=== PATIENT | female | born 1985 | race Caucasian/White ===

== ENCOUNTER 2016-11-12 16:09 | Emergency (ER) | payer BC ==
[2016-11-12 17:14] VITALS: BP 117/75
--- NOTE | 2016-11-12 17:41 | UC ---
Minor Trauma HPI - HPI Summary HPI Summary: 31 yo F states her 1 yo daughter jumped on her right groin. Today pt notices a lump in her right groin where pt jumped on her. No bruising. Is painful, worse with weight bearing. Pt thought the lump was pea sized, but when showing it to me realizes that it is larger than that. Pt also wants us to evaluate her left shoulder which has given her problems for years after softball injury. She states the shoulder pops when she rotates the shoulder. Was told she needed surgery years ago, that she has "bone on bone". - History of Current Complaint Chief Complaint: UCGU Stated Complaint: Lump in right groin, left shoulder popping Time Seen by Provider: 11/12/16 17:24 Hx Obtained From: Patient Hx Last Menstrual Period: 10/17/16 ?: No Onset/Duration: Gradual Onset, Lasting Days, Still Present Onset Of Pain: Post Accident Severity Initially: Moderate Severity Currently: Moderate Pain Intensity: 5 Pain Scale Used: 0-10 Numeric Mechanism Of Injury: Direct Blow Aggravating Factor(s): Ambulation Alleviating Factor(s): Nothing Associated Signs And Symptoms: Positive: Swelling - "lump" in right groin. Negative: Ecchymosis - Allergies/Home Medications Allergies/Adverse Reactions: Allergies Allergy/AdvReac Type Severity Reaction Status Date / Time Bee Venom Allergy Swelling Verified 10/08/14 07:43 caterpillar Allergy Swelling Uncoded 10/08/14 07:44 PMH/Surg Hx/FS Hx/Imm Hx Previously Healthy: Yes - Surgical History Surgical History: Yes Surgery Procedure, Year, and Place: deviated septum - Family History Known Family History: Positive: Hypertension - Social History Occupation: Employed Full-time Lives: With Family Alcohol Use: Rare Substance Use Type: None Smoking Status (MU): Never Smoked Tobacco Review of Systems Constitutional: Negative Skin: Negative Eyes: Negative ENT: Negative Respiratory: Negative Cardiovascular: Negative Gastrointestinal: Negative Genitourinary: Negative Motor: Negative Neurovascular: Negative Musculoskeletal: Arthralgia, Other: - lump in right groin after injury, pain with standing and weight bearing Neurological: Negative Psychological: Negative All Other Systems Reviewed And Are Negative: Yes Physical Exam Triage Information Reviewed: Yes Appearance: Well-Appearing, No Pain Distress, Well-Nourished Vital Signs: Initial Vital Signs Temp 98.8 F 11/12/16 17:09 Pulse 87 11/12/16 17:09 Resp 14 11/12/16 17:09 BP 117/75 11/12/16 17:09 Pulse Ox 100 11/12/16 17:09 Vital Signs Reviewed: Yes ENT: Positive: Normal ENT inspection Neck: Positive: Supple Respiratory: Positive: Lungs clear, Normal breath sounds, No respiratory distress Cardiovascular: Positive: RRR, No Murmur, Pulses Normal, Brisk Capillary Refill Abdomen Description: Positive: Nontender, No Organomegaly, Soft. Negative: Bruit, CVA Tenderness (R), CVA Tenderness (L), Distended, Guarding, Hepatomegaly , McBurney's Point Tenderness, Peritoneal Signs, Pulsatile Mass, Splenomegaly Bowel Sounds: Positive: Present Musculoskeletal: Positive: Strength Intact, ROM Intact, Other: - pain, swelling right groin, moveable mass 3cm, no bruising. Mass/swelling/tenderness appears to be on groin muscle tendon, and is painful to touch, and painful with right leg lift. No bony tenderness of pelvis. Pelvis stable. Left shoulder with pain posteriorly, medially. Full ROM, +crepitus. Axilllary nerve sensation intact. No deformity. Distal pulses intact. Neurological: Positive: Alert, Muscle Tone Normal Psychological Exam: Normal Skin Exam: Normal Minor Trauma Course/Dx - Course Course Of Treatment: xray pelvis-neg. xray left shoulder-neg. UA with blood and leuk esterase, but pt does not have UTI sxs, and states she just started her menses, so will not treat as UTI, but will send culture. UA was done to eval for blood after daughter jumped on her pelvis and pt started her menses while in UC, so blood is in UA. - Differential Dx/Diagnosis Differential Diagnosis/HQI/PQRI: Contusion(s), Fracture, Hematoma(s), Sprain, Strain Provider Diagnoses: Groin muscle strain. left shoulder pain Discharge - Discharge Plan Condition: Stable Disposition: HOME Patient Education Materials: Crutch Instructions (ED), Groin Strain (ED), Shoulder Pain (ED) Forms: *Work Release Referrals: Vicente Mejia MD [Medical Doctor] - As Soon As Possible (for right groin muscle strain and left shoulder popping and pain ) INO Rangel [Medical Doctor] - 2 Days
[2016-11-12] MEDS ORDERED: Ibuprofen TAB* 400 MG PO ONE (17:48)
--- NOTE | 2016-11-12 18:39 | RAD ---
INDICATION: Left shoulder pain and popping. TECHNIQUE: 4 views of the left shoulder were obtained. FINDINGS: The bones are in normal alignment. No fracture is seen. Joint spaces appear maintained. IMPRESSION: NEGATIVE EXAM.
--- NOTE | 2016-11-12 18:45 | RAD ---
INDICATION: Pelvic injury. TECHNIQUE: An AP view of the pelvis was obtained. FINDINGS: The bones are in normal alignment. No fracture is seen. Joint spaces appear maintained. IMPRESSION: NO EVIDENCE FOR FRACTURE.
== END 2016-11-12 19:22 | disposition home or self-care (01) ==
LOC: UCCORT 16:09
DX: S39.011A Strain of muscle, fascia and tendon of abdomen, initial encounter (principal); W50.0XXA Accidental hit or strike by another person, initial encounter; Y93.9 Activity, unspecified; Y92.9 Unspecified place or not applicable; M25.512 Pain in left shoulder; Z32.02 Encounter for pregnancy test, result negative
CPT/HCPCS: 72170; 81003; 84702; 87086; 99213; A9270-GY; G0463

== ENCOUNTER 2017-04-21 07:36 | Emergency (ER) | payer BC ==
[2017-04-21 07:47] VITALS: BP 122/65
--- NOTE | 2017-04-21 07:50 | UC ---
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 Left back/flank pain since yesterday afternoon. Chest pain, SOB, and difficulty sleeping since last night. Patient is 19 weeks . OB Lidia Lafleur." left flank pain has resolved. chest pain started last night. sharp 5/10. has worsened and now 7/10. constant. has not taken anything to relieve it. denies asthma hx. no wheezing. Denies swelling in legs. -here with her . -no personal or Fhx blood clots - has been nml. she reports nml US, no bleeding at all. 2nd . -no bleeding or spotting. no CTXs. + movement -chest not tender. - History of Current Complaint Chief Complaint: UCRespiratory Stated Complaint: RESPIRATORY,SOB 1 DAY Time Seen by Provider: 04/21/17 07:46 Hx Last Menstrual Period: 12/08/16 - Allergy/Home Medications Allergies/Adverse Reactions: Allergies Allergy/AdvReac Type Severity Reaction Status Date / Time Bee Venom Allergy Swelling Verified 04/21/17 07:43 Home Medications: Home Medications Vitamin TAB* 1 tab PO DAILY 04/21/17 [History Confirmed 04/21/17] PMH/Surg Hx/FS Hx/Imm Hx Previously Healthy: Yes - Surgical History Surgical History: Yes Surgery Procedure, Year, and Place: Deviated Septum, ~2004[facility] - Family History Known Family History: Positive: Hypertension, Respiratory Disease - Dad asthma. , Other - No Fhx DVTs/PEs - Social History Alcohol Use: Rare Substance Use Type: None Smoking Status (MU): Never Smoked Tobacco - Immunization History Most Recent Influenza Vaccination: "Not sure" Review of Systems Constitutional: Negative Skin: Negative Eyes: Negative ENT: Nasal Discharge, Sinus Congestion Respiratory: Shortness Of Breath Cardiovascular: Chest Pain Gastrointestinal: Negative Genitourinary: Negative Motor: Negative Neurovascular: Negative Musculoskeletal: Negative Neurological: Negative Psychological: Negative Is Patient Immunocompromised?: No All Other Systems Reviewed And Are Negative: Yes Physical Exam Triage Information Reviewed: Yes Appearance: Ill-Appearing - appears uncomfortable Vital Signs: Initial Vital Signs Temp 98.8 F 04/21/17 07:41 Pulse 122 04/21/17 07:41 Resp 18 04/21/17 07:41 BP 122/65 04/21/17 07:41 Pulse Ox 100 04/21/17 07:41 Vital Signs Reviewed: Yes Eye Exam: Normal ENT: Positive: Hearing grossly normal, Pharynx normal, Nasal congestion, TMs normal, Hoarse voice Dental Exam: Normal - front tooth dark Neck exam: Normal Neck: Positive: Supple, Nontender, No Lymphadenopathy Respiratory Exam: Normal Respiratory: Positive: Chest non-tender, Lungs clear, Normal breath sounds, Respiratory distress - uncomfortable/ pain w/ mod deep breath. Negative: Accessory muscle use, Crackles, Rhonchi, Stridor, Wheezing Cardiovascular Exam: Normal Cardiovascular: Positive: RRR, No Murmur, Pulses Normal Abdominal Exam: Normal - gravid, Other - heart rate 160 Abdomen Description: Positive: Nontender, Soft Bowel Sounds: Positive: Present Musculoskeletal Exam: Normal Neurological Exam: Normal Psychological Exam: Normal Skin Exam: Normal - Assessment/Plan Course Of Treatment: 31 yr old female 19 wks w/ sudden osnet of shapr chest pain radiating around entire chest since last PM, constant/progressive 7/ 10 w/ elevated HR of 122 and is uncomfortable. Adv ER for further evaluation. 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 They prefer having drive by private car and understand risks and importance of going directly to ER. - Differential Diagnoses - Chest Pain Differential Diagnosis/HQI/PQRI: Chest Wall, Pulmonary Embolism - Clinical Impression Provider Diagnoses: chest pain, - Physician Notifications Discussed Patient Care With: Dr Martinez [place] [facility] who accepts pt Discharge - Discharge Plan Condition: Guarded Disposition: TRANS HIGHER LVL OF CARE FAC Patient Education Materials: Chest Pain (ED) Referrals: Deisy Carrasquillo MD [Primary Care Provider] - Additional Instructions: You agree to go directly to the ER for further evaluation of the chest pain. Please do not stop anywhere on the way. We disccussed the improtance of evaluation to rule out a blood clot that has traveled to your heart.
== END 2017-04-21 08:11 | disposition short-term general hospital (02) ==
LOC: UCCORT 07:36
DX: O26.892 Other specified pregnancy related conditions, second trimester (principal); R07.89 Other chest pain; R06.02 Shortness of breath; Z3A.19 19 weeks gestation of pregnancy; Z91.030 Bee allergy status
CPT/HCPCS: 99212; G0463

== ENCOUNTER 2018-05-23 07:32 | Emergency (ER) | payer BC ==
[2018-05-23 07:48] VITALS: BP 121/78
--- NOTE | 2018-05-23 08:00 | UC ---
Ear Complaint HPI - HPI Summary HPI Summary: left ear and left jaw pain x 1 day know known injury , pain started at 3 am , woke her up from sleep pain is sever 7 out of 10 , radiation to her left lower jaw increase pain with talking, chewing no fever, no chills - History of Current Complaint Chief Complaint: UCDentalProblem Stated Complaint: LEFT JAW PAIN Time Seen by Provider: 05/23/18 07:47 Hx Obtained From: Patient Hx Last Menstrual Period: 05/12 ?: No Onset/Duration: Sudden Onset, Lasting Days - 1, Still Present Severity Initially: Severe Severity Currently: Severe Pain Intensity: 6 Aggravating Factors: Other - talking, opening mouth, chewing Alleviating Factors: Nothing Associated Signs/Symptoms: Negative: Hearing Loss, Foreign Body Sensation, Trauma to Ear, Swelling @, URI Symptoms - Allergies/Home Medications Allergies/Adverse Reactions: Allergies Allergy/AdvReac Type Severity Reaction Status Date / Time bee venom protein (honey bee) Allergy Swelling Verified 05/23/18 07:43 Penicillins Allergy Hives Verified 05/23/18 07:43 Home Medications: Home Medications Aspirin TAB* [Aspirin 325 MG TAB*] 650 mg PO ONCE PRN 05/23/18 [History Confirmed 05/23/18] PMH/Surg Hx/FS Hx/Imm Hx Previously Healthy: Yes - Surgical History Surgical History: Yes Surgery Procedure, Year, and Place: Deviated nasal Septum, ~2004, [place] - Family History Known Family History: Positive: Hypertension, Respiratory Disease - Dad asthma. , Other - No Fhx DVTs/PEs - Social History Alcohol Use: Rare Substance Use Type: None Smoking Status (MU): Never Smoked Tobacco - Immunization History Most Recent Influenza Vaccination: "Not sure" Review of Systems All Other Systems Reviewed And Are Negative: Yes Constitutional: Positive: Negative Skin: Positive: Negative Eyes: Positive: Negative ENT: Positive: Ear Ache - left Respiratory: Positive: Negative Cardiovascular: Positive: Negative Is Patient Immunocompromised?: No Physical Exam Triage Information Reviewed: Yes Appearance: Well-Nourished, Pain Distress Vital Signs: Initial Vital Signs Temp 98.6 F 05/23/18 07:44 Pulse 88 05/23/18 07:44 Resp 16 05/23/18 07:44 BP 121/78 05/23/18 07:44 Pulse Ox 100 05/23/18 07:44 Vital Signs Reviewed: Yes Eyes: Positive: Conjunctiva Clear ENT: Positive: Normal ENT inspection, Hearing grossly normal, Pharynx normal, TMs normal, Other - left TM joint : + tenderness, no swelling, limited ROM. Negative: TM bulging, TM dull, TM red Dental Exam: Normal Dental: Negative: Percussion Tenderness @, Gross Decay/Caries @, Dental Fracture @ Neck: Positive: Supple, Nontender, No Lymphadenopathy Respiratory: Positive: Chest non-tender, Lungs clear, Normal breath sounds Cardiovascular: Positive: RRR, No Murmur, Pulses Normal Ear Complaint Course/Dx - Differential Dx/Diagnosis Provider Diagnosis: TMJ tenderness, left Discharge - Sign-Out/Discharge Documenting (check all that apply): Patient Departure All imaging exams completed and their final reports reviewed: No Studies - Discharge Plan Condition: Stable Disposition: HOME Prescriptions: Naproxen [Naprosyn 500 mg tab] 500 mg PO BID #20 tablet Patient Education Materials: Temporomandibular Disorder (ED) Referrals: Abbi Moreno NP [Primary Care Provider] - 7 Days - Billing Disposition and Condition Condition: STABLE Disposition: Home
== END 2018-05-23 07:58 | disposition home or self-care (01) ==
LOC: UCCORT 07:32
DX: M26.602 Left temporomandibular joint disorder, unspecified (principal); Z88.0 Allergy status to penicillin
CPT/HCPCS: 99212; G0463